=== PATIENT | female | born 1950 | race Caucasian/White ===

== ENCOUNTER 2019-11-29 06:15 | Inpatient (IN) ==
--- NOTE | 2019-11-23 07:27 | ANES ---
Anesthesia Pre Procedure Eval HOME MEDICATIONS atorvastatin 10 mg tablet 10 mg PO DAILY tab 10/28/19 [Last Taken Unknown] diclofenac sodium 75 mg tablet,delayed release 75 mg PO BID tab 10/28/19 [Last Taken Unknown] gabapentin 300 mg capsule 300 mg PO TID cap 10/28/19 [Last Taken Unknown] lorazepam 1 mg tablet 1 mg PO BID PRN tab 10/28/19 [Last Taken Unknown] methylprednisolone 4 mg tablets in a dose pack See Rx Instructions PO .COMPLEX 10/28/19 [Last Taken Unknown] zolpidem 10 mg tablet 10 mg PO HS PRN tab 10/28/19 [Last Taken Unknown] Allergies/Adverse Reactions: Allergies Allergy/AdvReac Type Severity Reaction Status Date / Time No Known Allergies Allergy Verified 10/28/19 10:06 - Planned Procedure Planned Procedure: Right Arthroplasty Total Hip Medication List Reviewed:: Yes Allergies Verified: Yes Medical History (Last Reviewed 11/23/19 @ 07:25 by Juwan Wilson CRNA) Fracture, compound Onset Date: ~2000 left lower extremity Insomnia Onset Date: Unknown Anxiety Onset Date: Unknown Arthritis Onset Date: Unknown Hyperlipidemia Onset Date: Unknown Neuropathy Onset Date: Unknown Surgical History (Last Reviewed 11/23/19 @ 07:25 by Juwan Wilson CRNA) H/O spinal fusion Onset Date: ~2005 H/O tubal ligation Onset Date: Unknown History of tonsillectomy Onset Date: Unknown Metal bone fixation hardware in place Onset Date: ~2000 left lower leg Family History (Last Reviewed 11/23/19 @ 07:25 by Juwan Wilson CRNA) Father Heart disease Mother Natural with unknown cause - Family Anesthesia History Family History:: no untoward family reactions to anesthesia - Airway/Neck/Teeth Denture Type: Full upper Neck Exam: limited range of motion Mallampatti Score: 2 Thyromental (T-M) distance: > 6 cm Mandibulo Hyoid distance: > 3 cm - Respiratory Respiratory Physical: lungs clear Smoking Status: Former smoker Sleep Apnea currently treated: No Sleep Apnea by current assessment: No - Cardiovascular Cardiac History: hyperlipidemia Tolerate Activity: Fair Heart Sounds: S1 & S2, Regular - Gastrointestinal NPO since: instructed [place] - Anesthesia Assessment and Plan ASA Class: PS, II Anesthesia Type Plan: Spinal Planned difficult intubation/equipment available: No
[~2019-11-29 06:15] MED LIST: ROPIVACAINE HCL/PF 100 MG, EPINEPHrine 0.2 MG, KETOROLAC TROMETHAMINE 30 MG in NORMAL S... IJ PRN; TRANEXAMIC ACID 1,000 MG in NORMAL SALINE 100 ML IV PRN; ceFAZolin SODIUM 1 GM VIAL IV PRN
[2019-11-29] MEDS ORDERED: ISOPROPYL ALCOHOL 480 APPL BTL MC ONE (06:34)
[2019-11-29] MEDS ORDERED: ceFAZolin SODIUM 1 GM VIAL ONE (06:34)
[2019-11-29] MEDS: RINGER'S SOLUTION,LACTATED 1,000 ML IV PRN ×3 (06:58→09:16)
[2019-11-29] MEDS ORDERED: LIDOCAINE HCL 20 ML VIAL ONE (07:08)
[2019-11-29] MEDS ORDERED: PROPOFOL VIAL IV ONE (07:09)
[2019-11-29] MEDS ORDERED: WATER FOR INJECTION,STERILE 20 ML VIAL ONE (07:09)
[2019-11-29] MEDS ORDERED: MIDAZOLAM HCL/PF 5 MG/ML VIAL ONE (07:09)
[2019-11-29] MEDS ORDERED: BUPIVACAINE HCL/PF 10 ML VIAL ONE (07:31)
[2019-11-29] MEDS ORDERED: ACETAMINOPHEN 500 MG TABLET PO PRN (10:06)
[2019-11-29] MEDS ORDERED: MORPHINE SULFATE 2 MG/ML DISP.SYRIN IV PRN (10:06)
[2019-11-29] MEDS ORDERED: MAG HYDROX/ALUMINUM HYD/SIMETH 30 ML UDC PO PRN (10:06)
[2019-11-29] MEDS ORDERED: oxyCODONE HCL/ACETAMINOPHEN 1 TAB TABLET PO PRN (10:06)
[2019-11-29] MEDS ORDERED: MAGNESIUM HYDROXIDE 30 ML UDC PO PRN (10:06)
[2019-11-29] MEDS ORDERED: ONDANSETRON HCL/PF 2 MG/ML VIAL IV PRN (10:06)
--- NOTE | 2019-11-29 10:20 | OR ---
Operative Report - Dictated Report Narrative: Date: 11/29/2019 Preoperative diagnosis: Right hip degenerative joint disease Postoperative diagnosis: Right hip degenerative joint disease, intraoperative periprosthetic femur fracture Procedure: Right total hip arthroplasty with open reduction internal fixation with cerclage cabling of intraoperative periprosthetic femur fracture Surgeon: Bogdan Gibson M.D. Airline Lounge Receptionist: Froilan Duque PA-C Anesthesia: Spinal and local periarticular joint injection. Complications: None Specimens: Femoral head for disposal. Estimated blood loss: 200 milliliters. Retained implants: Depuy [place] size 3 femoral stem standard offset. Size 52 millimeter ouside diameter 3-hole [place] Gription acetabular cup. 52 millimeter outside by 36 millimeter inside diameter highly cross-linked acetabular liner. 36 millimeter diameter + 8.5 millimeter ceramic femoral head. Cancellous 6.5mm screw 35 millimeter length, [employer] cerclage cables x2 Indications: Raza is a 69-year-old female who has been followed in my clinic for period of time with significant complaints of right hip pain consistent with arthritic changes. She has failed conservative measures including but not limited to activity modification, passage of time, medications, and other conservative measures. Patient wished to proceed with surgical treatment. The risks, benefits, and alternatives were discussed in clinic. The risks of , blood clots, bleeding, infection, nerve/tendon blood vessel/ injury, malposition of components, dislocation and/or instability of joint, intraoperative fracture, postoperative limited range of motion, persistent pain, failure of components, and need for additional procedures. Patient wished to proceed. Consent was obtained after answering all questions. Procedure: After marking the correct extremity on the floor, the patient was taken to the operating room. A timeout was performed. IV antibiotics consisting of 1 g of Ancef were administered prior to the procedure. A spinal anesthetic was induced by anesthesia. A Nieto catheter was inserted. The payton ent was then transitioned to a lateral position on a well-padded pegboard. And an axillary roll was placed. The head was in neutral position. The non- operative down leg was well-padded with SCD and VINNY hose in place. The arms were supported and padded to protect from any undue pressure on the bony prominences and nerves. Well-padded anterior and posterior pelvic and chest posts were secured in order to maintain a stable position of the pelvis. This was placed so that the pelvis was perpendicular to the floor. The body was in line with the pelvis. Once it was felt that we had protected all the bony prominences and the patient was well secured with a safety belt as well, the leg was pre-scrubbed with alcohol, prepped and draped in a standard sterile fashion. A standard anterior lateral hip incision was marked out over the greater trochanter. Ioban drapes were then placed. The skin incision was then made. Sharp dissection with a scalpel utilizing cautery for hemostasis was carried out down to the gluteus and iliotibial band fascia. This was split in line with the skin incision. The greater trochanter bursa was excised. The anterior and posterior margins of the abductor tendon were identified. The anterior 1/3 of the tendon was tagged and reflected off the greater trochanter leaving a sleeve of tendon for repair at the completion of the case. This exposed the underlying hip joint capsule. A limb length stitch was placed in the skin and referenced off a carmencita on the greater trochanter for evaluation of intraoperative limb lengths. An inverted T-type capsulotomy was made extending this up to the brim of the acetabulum. Using Homans to assist with elevation of the soft tissues off the anterior, superior, and inferior aspects of the femoral neck, the hip was then placed in a figure 4 position and the femoral head was dislocated. With the leg in an externally rotated and adducted position, the cutting flag was utilized in order to carmencita for a standard femoral neck cut approximately a fingerbreadth above the level of the lesser trochanter. This was done while protecting the surrounding soft tissues with Homans. The femoral head was then removed and sized for guidance on preparation of the acetabulum. It was noted that there was loss of articular cartilage on both the femoral head and weightbearing portions of the acetabulum. We then returned the leg to the table and turned our attention to the acetabulum. While protecting the surrounding soft tissues, the labrum and remaining tissue in the fovea were excised using a scalpel and cautery. A series of reamers up to size 51 millimeter were utilized to prepare the acetabulum. The final reamer had good purchase and exposed the bleeding subchondral bone. The acetabulum was then thoroughly irrigated ensuring that all bony and cartilaginous materials were removed and the final acetabular shell was impacted into place. This was placed in approximately 45 degrees of abduction and 20 degrees of anteversion utilizing the outrigger and body axis for alignment. This had a good press fit. A 6.5 x 35 mm cancellous screw was placed in the posterior superior quadrant of the acetabulum. The shell was then thoroughly irrigated and the final polyethylene was impacted into place ensuring that it seated completely. This was then protected with a sponge while we returned our attention to the femur. With the leg in a figure 4 position utilizing Homans for soft tissue protection, a box cutting osteotome, followed by Charjacquelineey awl, followed by serial reamers and broaches were utilized in order to prepare the femur. It was found that a size 3 broach gave good axial and rotational stability. The calcar reamer was utilized in order to clean up the cut edges. The proximal femur was visualized to ensure that there were no signs of fracture following broaching. A series of heads and necks were trialed. It was found that a standard neck and a + 8.5 mm femoral head gave good overall stability. There was minimal longitudinal instability. With the leg in the position of sleep the femoral head was well covered. Hip range of motion was able to reach full extension and external rot ation to greater than 75 degrees prior to impingement along the posterior acetabulum. The hip was able to be flexed to greater than 90 degrees with internal rotation greater than 60 degrees prior to anterior impingement. The limb lengths were near equal based on comparison to the contralateral side in the prior placed limb length stitch. At this point was felt this was the appropriately sized femoral components as well as neck and femoral head. The trial implants were removed. The femur was thoroughly irrigated. The final implants were impacted in the place. While impacting the final femoral stem, we noted a longitudinal crack down the anterior aspect of the proximal femur. The stem was removed. Electrocautery was carried out down through the vastus musculature to better visualize the fracture. We then elected to proceed with cerclage cabling. 1 cable was placed just superior to the lesser trochanter around the femoral neck. A second cable was placed 3 to 4 cm distal to this. These were both appropriately tensioned, tightened, and the excess cables cut. Further visualization revealed excellent reduction of the fracture line. We then proceeded with impacting the same size 3 femoral stem. This was carefully impacted into place while visualizing the fracture line. There was no displacement of the fracture and the femoral stem was seated in a good position and demonstrated good longitudinal and rotational stability. The +8.5 mm head was again trialed and found to have good stability, excellent range of motion, and no impingement on the acetabulum. The trial head was removed and the final ceramic head was impacted into place and the hip was reduced. The joint was then thoroughly irrigated with normal saline. The fracture line was again visualized and noted to still be reduced with no displacement. The standard periarticular joint injection of ropivacaine, Toradol, and epinephrine were injected into the joint capsule and surrounding soft tissues. The capsule was repaired with interrupted #1 Vicryl. The abductor tendon was repaired utilizing #2 Fiberwire. This was oversewn with #1 Vicryl. The fascia was closed with running #1 barbed PDS suture. The wounds were thoroughly irrigated as we closed in layers. The deep fat layers were closed with running 0 PDS barbed suture. The subcutaneous tissue was closed with interrupted 3-0 Vicryl and the skin with a running subcuticular 4-0 monocryl and Prineo dressing. All sponge, needle, blade, and instrument counts were correct prior to closing the wounds. Sterile dressings consisting of Xero form, 4 x 4's, ABD, and tape were applied. The patient was awoken and transferred to her hospital bed and then to the postanesthesia care unit in stable condition. Postoperative condition: The plan is to admit to the medical/surgical inpatient floor postoperatively. There will be a projected 2 to 4 day hospital stay. Postoperatively 24 hours of IV antibiotics, pain control, physical therapy, o ccupational therapy, and medical comanagement will be utilized. Patient will be 50% weightbearing due to her fracture with anterior hip precautions. Postoperative films will be obtained in the recovery room.
--- NOTE | 2019-11-29 11:01 | ANES ---
Post Anesthesia Assessment - Vital Signs Vitals: Last Vital Signs Temp 36.1 C 11/29/19 10:49 Pulse 67 11/29/19 10:49 Resp 16 11/29/19 10:49 BP 105/48 11/29/19 10:49 Pulse Ox 97 11/29/19 10:49 Airway Patency: Normal - Mental Status Level Of Consciousness: Awake - Pain Level Pain Score: 0 - N/V Assessment Nausea/Vomiting Presence: None Dehydration:: No
--- NOTE | 2019-11-29 11:01 | ANES ---
Post Anesthesia Discharge - Transfer of Care Transfer of Care handoff given to nurse: Yes - Discharge from PACU Discharge from PACU when meets criteria: Yes
[2019-11-29] MEDS: NORMAL SALINE 1,000 ML IV PRN ×2 (11:35→21:42)
[2019-11-29] MEDS: oxyCODONE HCL/ACETAMINOPHEN 1 TAB TABLET PO PRN ×2 (14:09→18:50)
[2019-11-29] MEDS: ceFAZolin SODIUM 1 GM in DEXTROSE 5 % IN WATER 100 ML IV SCH ×4 (14:10→21:41)
[2019-11-29] MEDS: SENNOSIDES/DOCUSATE SODIUM 1 TAB TABLET PO SCH (20:13)
[2019-11-30] MEDS: oxyCODONE HCL/ACETAMINOPHEN 1 TAB TABLET PO PRN ×3 (01:39→13:02)
[2019-11-30] MEDS: ceFAZolin SODIUM 1 GM in DEXTROSE 5 % IN WATER 100 ML IV SCH ×2 (05:06)
[2019-11-30 06:29] LABS: Anion Gap 11.7 mmol/L (6.8-13.8); BUN/Creatinine Ratio 8.7 (9.0-21.6); Calcium * 8.2 mg/dL (7.9-10.9); Carbon Dioxide 24.9 mmol/L (24-32.6); Estimated Creat Clear 57.6; Hematocrit 33.2 % (37.0-47.0); Mean Cell Volume 90.2 fl (78-100); Mean Corpuscular Hemoglobin 29.9 pg (27-31); Mean Corpuscular Hgb Conc 33.1 g/dl (32-36); Mean Platelet Volume 9.9 fl (8-12.5); Platelet Count 272 K/mm3 (150-450); Potassium 3.6 mmol/L (3.4-4.6); Red Blood Count 3.68 M/mm3 (4.2-5.4); Red Cell Distribution Width 12.8 % (11.5-14.0); White Blood Count 10.2 K/mm3 (4.0-10.5)
[2019-11-30] MEDS: ENOXAPARIN SODIUM 40 MG/0.4 ML SYRG SC SCH (09:15)
--- NOTE | 2019-11-30 15:55 | PN ---
Subjective - Date and Time Seen Date: 11/30/19 Time: 07:45 Subjective Narrative: Patient reports no acute events. Patient notes she her pain is well controlled. Patient states she is having no other significant complications. Patient states she overall has been partial weightbearing. She has been up and around the room with assistance. She is using a walker. She notes no other significant complaints. Objective - Vitals Vitals: Last Vital Signs Temp 36.9 C 11/30/19 14:22 Pulse 90 11/30/19 14:22 Resp 14 11/30/19 14:22 BP 115/55 11/30/19 14:22 Pulse Ox 97 11/30/19 14:22 - Abnormal Lab Findings Abnormal Lab Findings: Abnormal Lab Results 11/30/19 11/30/19 Range/Units 06:17 06:17 RBC 3.68 L (4.2-5.4) M/mm3 Hgb 11.0 L (12.5-16.0) gm/dL Hct 33.2 L (37.0-47.0) % Chloride 108 H (97-106) mmol/L BUN/Creatinine Ratio 8.7 L (9.0-21.6) Random Glucose 127 H (70-110) mg/dL - Exam Constitutional: Present: Alert, Cooperative, No distress Respiratory: Present: no respiratory distress Extremity: Present: other - RLE--> sensation intact light touch, bandages in place clean/dry/intact, distal capillary refill brisk, diffuse tenderness mild about the right hip, 4+/5 knee flexion extension Appearance: Present: appropriate appearance Eye contact: Present: cooperative Thoughts: Present: normal thought pattern Cauti Physician Documentation - Urinary Catheter Management Urethral (Nieto) Date of Insertion: 11/29/19 Time of Insertion: 08:00 Date of Removal: 11/30/19 Time of Removal: 05:55 Assessment/Plan Plan Narrative: -69 y/o female postop day 1 status post a right total hip arthroplasty with open reduction internal fixation with cabling of periprosthetic femoral shaft fracture -50% weightbearing as tolerated, walker assistive device -PT/OT progress as tolerated with restrictions -P.o. diet as tolerated -P.o. pain medication PRN -DVT prophylaxis: Lovenox, SCDs in bed, VINNY hose knee-high -Maintain surgical dressings in place -Continue to monitor for postoperative complications, work towards pain control and physical therapy goals -We will order Ambien patient uses a sleep aid at home -Disposition plan to discharge to [facility] facility for further care - Problems/Diagnosis (1) Status post total hip replacement, right Problem: Acute (2) Osteoarthritis of right hip Problem: Chronic Qualifiers:
[2019-11-30] MEDS: ZOLPIDEM TARTRATE 5 MG TABLET PO SCH (21:22)
[2019-11-30] MEDS: SENNOSIDES/DOCUSATE SODIUM 1 TAB TABLET PO SCH (21:22)
[2019-12-01 06:44] LABS: Hematocrit 34.3 % (37.0-47.0); Hemoglobin 11.5 gm/dL (12.5-16.0); Mean Cell Volume 89.1 fl (78-100); Mean Corpuscular Hemoglobin 29.9 pg (27-31); Mean Corpuscular Hgb Conc 33.5 g/dl (32-36); Mean Platelet Volume 10.2 fl (8-12.5); Platelet Count 263 K/mm3 (150-450); Red Blood Count 3.85 M/mm3 (4.2-5.4); Red Cell Distribution Width 12.6 % (11.5-14.0); White Blood Count 11.4 K/mm3 (4.0-10.5)
[2019-12-01 06:50] LABS: BUN/Creatinine Ratio 9.1 (9.0-21.6); Calcium * 8.4 mg/dL (7.9-10.9); Estimated Creat Clear 72.2
[2019-12-01] MEDS: ENOXAPARIN SODIUM 40 MG/0.4 ML SYRG SC SCH (09:13)
--- NOTE | 2019-12-01 14:36 | PN ---
Subjective - Date and Time Seen Date: 12/01/19 Time: 07:45 Subjective Narrative: Patient doing well. She reports no acute events overnight. She has been up and walked with physical therapy. She notes weightbearing with a walker does not cause significant pain. She does have mild pain with weightbearing, however is not significant after limit her ambulation. Objective - Vitals Vitals: Last Vital Signs Temp 36.2 C 12/01/19 06:47 Pulse 108 H 12/01/19 06:47 Resp 18 12/01/19 06:47 BP 170/65 H 12/01/19 06:47 Pulse Ox 97 12/01/19 06:47 - Abnormal Lab Findings Abnormal Lab Findings: Abnormal Lab Results 12/01/19 12/01/19 Range/Units 06:06 06:06 WBC 11.4 H (4.0-10.5) K/mm3 RBC 3.85 L (4.2-5.4) M/mm3 Hgb 11.5 L (12.5-16.0) gm/dL Hct 34.3 L (37.0-47.0) % Potassium 3.0 L (3.4-4.6) mmol/L Anion Gap 14.0 H (6.8-13.8) mmol/L Random Glucose 132 H (70-110) mg/dL - Exam Constitutional: Present: Alert, Cooperative, No distress Respiratory: Present: no respiratory distress Extremity: Present: other - RLE--> bandages clean/dry/intact, sensation intact light touch, 5-/5 knee flexion extension, diffuse mild tenderness about right hip, distal capillary refill brisk Appearance: Present: appropriate appearance Eye contact: Present: cooperative Thoughts: Present: normal thought pattern Cauti Physician Documentation - Urinary Catheter Management Urethral (Nieto) Date of Insertion: 11/29/19 Time of Insertion: 08:00 Date of Removal: 11/30/19 Time of Removal: 05:55 Assessment/Plan Plan Narrative: -69 y/o female postop day 2 status post a right total hip arthroplasty with open reduction internal fixation with cabling of periprosthetic femoral shaft fracture -50% weightbearing as tolerated, walker assistive device -PT/OT progress as tolerated with restrictions -P.o. diet as tolerated -P.o. pain medication PRN -DVT prophylaxis: Lovenox, SCDs in bed, VINNY hose knee-high -Maintain surgical dressings in place -Continue to monitor for postoperative complications, work towards pain control and physical therapy goals -Disposition: Plan to discharge to longterm facility, [facility] on 12/02/2019 - Problems/Diagnosis (1) Status post total hip replacement, right Problem: Acute (2) Osteoarthritis of right hip Problem: Chronic Qualifiers:
[2019-12-01] MEDS: ZOLPIDEM TARTRATE 5 MG TABLET PO SCH (21:18)
[2019-12-01] MEDS: SENNOSIDES/DOCUSATE SODIUM 1 TAB TABLET PO SCH (21:18)
--- NOTE | 2019-12-02 07:58 | DS ---
(1) Status post total hip replacement, right Problem: Acute (2) Osteoarthritis of right hip Problem: Chronic Qualifiers: Date of Discharge:: 12/02/19 Hospital Course: 69-year-old female admitted status post right total hip arthroplasty with open reduction internal fixation of intraoperative periprosthetic femoral shaft fracture. Patient surgery went well, postoperatively she has had appropriate pain control, she is return to p.o. diet. Patient has been able to begin physical therapy, she is partial weightbearing with a walker at 50% on the right lower extremity. Patient has been able to progress and meet all goals at this point. She is doing well. Patient notes her pain is mildly increased with motion better with rest. Exam today right lower extremity reveals sensation intact light touch, distal capillary refill brisk, 5-/5 knee flexion and extension, diffuse mild tenderness to palpation of the right hip, pernio in place no significant erythema or drainage. Patient will follow-up in orthopedic outpatient clinic at 2 weeks postoperative. She will continue with the following recommendations: -69 y/o female postop day 3 status post a right total hip arthroplasty with open reduction internal fixation with cabling of periprosthetic femoral shaft fracture -50% weightbearing as tolerated, walker assistive device -PT/OT progress as tolerated with restrictions -P.o. diet as tolerated -Pain medication: Percocet 5/325 mg tablets 1-2 tabs every 4-6 hours PRN for pain p.o. -DVT prophylaxis: Lovenox until 10 days postoperative followed by 325 mg aspirin daily for 6 weeks, SCDs in bed, VINNY hose knee-high -Pernio dressing in place maintain monitor for drainage and erythema -Potassium was 3.0 yesterday, patient was given 40 mEq of potassium one-time dose can continue to monitor with PCP, patient is currently asymptomatic -[facility], follow-up in orthopedic outpatient clinic at 2 weeks postoperative Procedures Performed: see notes below List Procedures: right total hip arthroplasty with open reduction internal fixation with cabling of periprosthetic femoral shaft fracture Results and Findings: Lab Pending Results 11/30/19 06:17: WBC 10.2, RBC 3.68 L, Hgb 11.0 L, Hct 33.2 L, MCV 90.2, MCH 29.9, MCHC 33.1, RDW 12.8, Plt Count 272, MPV 9.9 11/30/19 06:17: Sodium 141, Plasma Sodium 141, Potassium 3.6, Chloride 108 H, Carbon Dioxide 24.9, Anion Gap 11.7, BUN 6, Creatinine 0.69, Est GFR (Non-Af Amer) 89, BUN/Creatinine Ratio 8.7 L, Random Glucose 127 H, Calcium 8.2 12/01/19 06:06: WBC 11.4 H, RBC 3.85 L, Hgb 11.5 L, Hct 34.3 L, MCV 89.1, MCH 29.9, MCHC 33.5, RDW 12.6, Plt Count 263, MPV 10.2 12/01/19 06:06: Sodium 138, Plasma Sodium 139, Potassium 3.0 L, Chloride 103, Carbon Dioxide 24.0, Anion Gap 14.0 H, BUN 5, Creatinine 0.55, Est GFR (Non-Af Amer) 116 D, BUN/Creatinine Ratio 9.1, Random Glucose 132 H, Calcium 8.4 Discharge Location: [facility] Disposition: SNF Condition: Good Level of Care: SNF Discharge Activity: Activity as tolerated, Partial-Weight bearing - 50% right lower extremity Discharge Diet: General/regular food [facility] Therapy: Physical Therapy, Occupation Therapy Referrals: Bogdan Gibson MD [Staff Physician] - 12/14/19 9:45 am Problem Oriented Discharge Instructions to Patient/Family: Total Hip Replacement, Care After, [id number] Print Language (Austrian or Nepali Available): Austrian Additional Patient Instructions (free text): To [facility], for PT and OT to evaluate and treat. Follow up at [facility] with Dr. Gibson in the office on 12/14/2019 at 9:45am. Prescriptions (Any new or edited meds): Enoxaparin Sodium [Lovenox] 40 mg SC Q24H #7 disp.syrin Transmission Status: Received by [facility] oxyCODONE HCL/ACETAMINOPHEN [Percocet 5 MG/325 MG] 1 - 2 tab PO QID PRN #60 tab PRN Reason: Severe Pain (Pain Scale 7-10) Transmission Status: Received by [facility] Complete Home Medications List: Complete Home Medication List: atorvastatin 10 mg tablet 10 mg PO DAILY tab 10/28/19 diclofenac sodium 75 mg tablet,delayed release 75 mg PO BID tab 10/28/19 gabapentin 300 mg capsule 300 mg PO TID cap 10/28/19 lorazepam 1 mg tablet 1 mg PO BID PRN tab 10/28/19 zolpidem 10 mg tablet 10 mg PO HS PRN tab 10/28/19 Cyclobenzaprine HCl 10 mg PO BID PRN 11/23/19 Enoxaparin Sodium [Lovenox] 40 mg SC Q24H #7 disp.syrin 12/02/19 oxyCODONE HCL/ACETAMINOPHEN [Percocet 5 MG/325 MG] 1 - 2 tab PO QID PRN #60 tab 12/02/19
[2019-12-02] MEDS ORDERED: POTASSIUM CHLORIDE 20 MEQ TABLET.SA PO ONE (08:15)
[2019-12-02] MEDS: ENOXAPARIN SODIUM 40 MG/0.4 ML SYRG SC SCH (08:44)
[2019-12-02 09:08] VITALS: BP 104/60
== END 2019-12-02 10:01 | DRG 470 ==
LOC: MS 06:15
PROVIDERS: ADMIT Orthopaedic Surgery; ATTEND Orthopaedic Surgery
DX: Y79.3 Surgical instruments, materials and orthopedic devices (including sutures) associated with adverse incidents; Y92.234 Operating room of hospital as the place of occurrence of the external cause; M96.661 Fracture of femur following insertion of orthopedic implant, joint prosthesis, or bone plate, right leg; M16.11 Unilateral primary osteoarthritis, right hip
CPT/HCPCS: 36415; 73502; 80048; 85027; 97116; 97161; 97165; 97530; 97535